=== PATIENT | male | born 2000 | race Caucasian/White ===

== ENCOUNTER 2025-05-07 12:14 | Day surgery (SDC) | payer BC ==
[2025-05-07] MEDS ORDERED: Acetaminophen 500 MG TAB ONE (13:14)
[2025-05-07] MEDS ORDERED: diphenhydrAMINE 25 MG CAP ONE (13:14)
[2025-05-07] MEDS: Acetaminophen 500 MG TAB PO SCH (13:15)
[2025-05-07] MEDS: diphenhydrAMINE 25 MG CAP PO SCH (13:15)
[2025-05-07 16:09] VITALS: BP 110/53; TEMP 98.2
== END 2025-05-07 16:12 | disposition home or self-care (01) ==
LOC: ONC/OP 12:14
PROVIDERS: ATTEND Internal Medicine Hematology & Oncology
DX: D64.9 Anemia, unspecified (principal); D69.59 Other secondary thrombocytopenia; Z91.048 Other nonmedicinal substance allergy status
CPT/HCPCS: 36430; 86850; 86900; 86901; 99212; G0463; P9035